=== PATIENT | male | born 1990 | race Caucasian/White ===

== ENCOUNTER 2017-08-17 21:12 | Inpatient (IN) | payer BC ==
[2017-08-18 01:37] LABS: ADD MAN DIFF? NO
[2017-08-18 01:40] LABS: ABNORMAL IP MESSAGE 1; BASOPHILS % 0.1 % (0.0-2.0); HEMATOCRIT 47.4 % (42.0-52.0); HEMOGLOBIN 16.8 g/dl (14.0-18.0); LYMPHOCYTES # 1.4 10^3/ul (0.8-2.9); LYMPHOCYTES % 16.9 % (15.0-51.0); MEAN CORPUSCULAR HEMOGLOBIN 30.2 pg (29.0-33.0); MEAN CORPUSCULAR HGB CONC 35.4 g/dl (32.0-37.0); MEAN CORPUSCULAR VOLUME 85.1 fl (82.0-101.0); MEAN PLATELET VOLUME 9.3 fl (7.4-10.4); MONOCYTE # 0.8 10^3/ul (0.3-0.9); MONOCYTES % 9.6 % (0.0-11.0); NEUTROPHILS % 72.7 % (39.0-77.0); NUCLEATED RED BLOOD CELLS% 0.2 /100WBC (0.0-0.0); PLATELET COUNT 285 10^3/UL (140-415); POSITIVE DIFF @See below; RED BLOOD COUNT 5.57 10^6/ul (4.70-6.10); RED CELL DISTRIBUTION WIDTH 12.6 % (11.5-14.5)
[2017-08-18 01:40] LABS: WHITE BLOOD COUNT 8.2 10^3/ul (4.8-10.8)
[2017-08-18] MEDS: ONDANSETRON 4 MG INJ IV ×4 (01:53→17:18)
[2017-08-18] MEDS: HYDROmorphONE 0.5 MG/0.5 ML SYG IV (01:53)
[2017-08-18] MEDS: SOD CHLORIDE 0.9% 1,000 ML IV ×2 (01:53→09:30)
[2017-08-18 02:03] LABS: ALANINE AMINOTRANSFERASE 21 IU/L (13-69); ALBUMIN 4.3 g/dl (3.3-4.9); ALKALINE PHOSPHATASE 64 IU/L (42-121); ANION GAP 18 (8-16); ASPARTATE AMINO TRANSFERASE 26 IU/L (15-46); BILIRUBIN,INDIRECT 0.1 mg/dl (0-1.1); BILIRUBIN,TOTAL 0.1 mg/dl (0.2-1.3); BLOOD UREA NITROGEN 19 mg/dl (7-20); CALCIUM 9.5 mg/dl (8.4-10.2); CARBON DIOXIDE 29 mmol/L (21-31); CHLORIDE 91 mmol/L (97-110); CREATININE 0.81 mg/dl (0.61-1.24); GLUCOSE 102 mg/dl (70-220); LIPASE 92 U/L (23-300); POTASSIUM 3.8 mmol/L (3.5-5.1); SODIUM 134 mmol/L (135-144); TOTAL PROTEIN 8.2 g/dl (6.1-8.1)
[2017-08-18] MEDS: SOD CHLORIDE 0.9% 100 ML ×2 (03:04→21:19)
[2017-08-18] MEDS: IOHEXOL 300MG/ML 150 ML BTL ×2 (03:04→21:19)
[2017-08-18] MEDS: ERTAPENEM SODIUM 1 GM in SOD CHLORIDE 0.9% 100 ML IVPB (05:13)
[2017-08-18] MEDS ORDERED: ACETAMINOPHEN 325 MG TAB PO (06:00)
[2017-08-18] MEDS ORDERED: ONDANSETRON 4 MG INJ IV (06:00)
[2017-08-18] MEDS ORDERED: ALBUTEROL/IPRATROPIUM (NEB) 3 ML AMP HHN (09:00)
[2017-08-18] MEDS ORDERED: NACL 0.9% 3 ML SYG IV (09:00)
[2017-08-18] MEDS: DEXTROSE 5%-0.45% NACL 1,000 ML IV ×2 (10:08→18:03)
[2017-08-18] MEDS: FAMOTIDINE 20 MG INJ IV ×2 (10:13→21:39)
[2017-08-18] MEDS: morphine 2 MG INJ IV ×2 (10:14→17:18)
[2017-08-18] MEDS: PIPER-TAZO 3.375 GM IV (PMX) 100 ML IVPB ×3 (13:17→23:52)
[2017-08-18] MEDS ORDERED: LORAZEPAM 2 MG INJ IV ×2 (14:00)
[2017-08-18] MEDS ORDERED: BARIUM SULF 2% 450 ML BTL (BERRY SMOOTHIE) PO (16:30)
[2017-08-18] MEDS: IOHEXOL 14.3 MG(I)/ML (ADULT) BTL PO (18:15)
[2017-08-19] MEDS: morphine 2 MG INJ IV ×3 (00:02→08:15)
[2017-08-19] MEDS: DEXTROSE 5%-0.45% NACL 1,000 ML IV ×2 (04:08→08:56)
[2017-08-19 05:44] LABS: WHITE BLOOD COUNT 9.7 10^3/ul (4.8-10.8)
[2017-08-19 05:44] LABS: HEMATOCRIT 35.6 % (42.0-52.0); HEMOGLOBIN 12.8 g/dl (14.0-18.0); MEAN CORPUSCULAR HEMOGLOBIN 30.7 pg (29.0-33.0); MEAN CORPUSCULAR VOLUME 85.4 fl (82.0-101.0); MEAN PLATELET VOLUME 9.9 fl (7.4-10.4); PLATELET COUNT 243 10^3/UL (140-415); POSITIVE DIFF @See below; RED BLOOD COUNT 4.17 10^6/ul (4.70-6.10); RED CELL DISTRIBUTION WIDTH 12.5 % (11.5-14.5)
[2017-08-19 05:53] LABS: ADD MAN DIFF? YES
[2017-08-19 06:25] LABS: ALANINE AMINOTRANSFERASE 53 IU/L (13-69); ALBUMIN/GLOBULIN RATIO 1.07; ALKALINE PHOSPHATASE 70 IU/L (42-121); ANION GAP 14 (8-16); ASPARTATE AMINO TRANSFERASE 64 IU/L (15-46); BILIRUBIN,INDIRECT 0.1 mg/dl (0-1.1); BILIRUBIN,TOTAL 0.1 mg/dl (0.2-1.3); BLOOD UREA NITROGEN 9 mg/dl (7-20); CALCIUM 8.1 mg/dl (8.4-10.2); CARBON DIOXIDE 25 mmol/L (21-31); CHLORIDE 104 mmol/L (97-110); CREATININE 0.82 mg/dl (0.61-1.24); GLUCOSE 148 mg/dl (70-220); MAGNESIUM 1.6 mg/dl (1.7-2.5); SODIUM 140 mmol/L (135-144); TOTAL PROTEIN 5.8 g/dl (6.1-8.1)
[2017-08-19] MEDS: PIPER-TAZO 3.375 GM IV (PMX) 100 ML IVPB (06:48)
[2017-08-19 06:56] LABS: POTASSIUM 2.9 mmol/L (3.5-5.1)
[2017-08-19 07:37] LABS: ANISOCYTOSIS 1+ (0-0); BAND NEUTROPHILS #M 3.4 10^3/ul (0.0-0.6); BAND NEUTROPHILS % (M) 36 % (0-4); LYMPHOCYTES % (M) 11 % (15-51); MONOCYTE #M 0.4 10^3/ul (0.3-0.9); MONOCYTES % (M) 5 % (0-11); MYELOCYTES % (M) 1 % (0-0); PLATELET ESTIMATE NORMAL; POIKILOCYTOSIS 1+ (0-0); POLYCHROMASIA 1+ (0-0); REACTIVE LYMPHOCYTES #M 0.4 10^3/ul (0.0-0.0); REACTIVE LYMPHOCYTES% (M) 5 % (0-0); SEG NEUT #M 4.4 10^3/ul (1.6-7.5); SEGMENTED NEUTROPHILS (M) % 42 % (39-77); SMUDGE%M 1 % (0-0)
[2017-08-19] MEDS: POTASSIUM CHLORIDE (SR) 20 MEQ TAB PO (08:12)
[2017-08-19] MEDS: FAMOTIDINE 20 MG INJ IV (08:12)
[2017-08-19] MEDS: ONDANSETRON 4 MG INJ IV (08:15)
[2017-08-19] MEDS ORDERED: BISACODYL (EC) 5 MG TAB PO (10:00)
[2017-08-19] MEDS ORDERED: MAGNESIUM CITRATE 300 ML BTL PO (17:30)
[2017-08-19] MEDS ORDERED: POLYETHYLENE GLYCOL 3350 119 GM POWDER PO (18:30)
[2017-08-20] MEDS ORDERED: POLYETHYLENE GLYCOL 3350 119 GM POWDER PO (06:00)
[2017-08-20] MEDS ORDERED: BISACODYL (EC) 5 MG TAB PO (08:00)
[2017-08-20 14:51] LABS: LYMPHOCYTE - % CD4 (HELPER) 47 % (30-61); LYMPHOCYTE - %CD8 (SUPPRESSOR) 19 % (12-42); LYMPHOCYTE - ABSOLUTE 1103 cells/uL (850-3900); LYMPHOCYTE - ABSOLUTE CD4 513 cells/uL (490-1740); LYMPHOCYTE - ABSOLUTE CD8 205 cells/uL (180-1170); LYMPHOCYTE - CD4/CD8 RATIO 2.51 (0.86-5.00)
== END 2017-08-19 11:00 | disposition left against medical advice (07) | DRG 392 ==
LOC: E/R 21:12 → MS2 08-18 05:43
PROC: 05HB33Z Insertion of Infusion Device into Right Basilic Vein, Percutaneous Approach (ICD-10-PCS; principal; 2017-08-18)
PROC: B54MZZA Ultrasonography of Right Upper Extremity Veins, Guidance (ICD-10-PCS; 2017-08-18)
DX: K52.9 Noninfective gastroenteritis and colitis, unspecified (principal); K56.7 Ileus, unspecified; Z68.1 Body mass index [BMI] 19.9 or less, adult; R19.7 Diarrhea, unspecified; R10.9 Unspecified abdominal pain; R63.4 Abnormal weight loss; R10.31 Right lower quadrant pain; F31.9 Bipolar disorder, unspecified; F43.20 Adjustment disorder, unspecified; Z21 Asymptomatic human immunodeficiency virus [HIV] infection status; Z53.21 Procedure and treatment not carried out due to patient leaving prior to being seen by health care provider; Z79.899 Other long term (current) drug therapy
CPT/HCPCS: 36415; 74177; 80053; 83690; 83735; 84100; 85025; 86360; 87045; 87536; 96374; 96375; 96376; 99217; 99285-25

== ENCOUNTER 2018-08-31 03:28 | Emergency (ER) | payer SELFPAY, BC | END 2018-08-31 06:35 | disposition left against medical advice (07) | LOC: FTE 06:35 | DX: Z53.21 Procedure and treatment not carried out due to patient leaving prior to being seen by health care provider (principal) ==